=== PATIENT | male | born 1960 | race Caucasian/White ===

== ENCOUNTER 2019-07-30 07:41 | Day surgery (SDC) | payer BC ==
[2019-07-29 09:12] VITALS: BMI 28.7
[2019-07-30] MEDS ORDERED: LIDOCAINE HCL 1%, 10 MG/ML (20ML VIAL) ONE (08:12)
[2019-07-30] MEDS ORDERED: BUPIVACAINE HCL/PF 0.5% (5 MG/ML) 30 ML VIAL IJ ONE ×2 (08:12→09:20)
[2019-07-30] MEDS ORDERED: PROPOFOL 20 ML ONE ×2 (08:43)
[2019-07-30] MEDS ORDERED: MIDAZOLAM HCL 2 MG/2 ML SINGLE DOSE VIAL ONE (08:44)
[2019-07-30] MEDS ORDERED: SUCCINYLCHOLINE CHLORIDE 200 MG/10 ML SYRINGE ONE (08:44)
--- NOTE | 2019-07-30 08:44 | HP ---
Satellite H - Chief Complaint Chief Complaint: right index finger pain/locking - Past Medical History Allergies/Adverse Reactions: Allergies Allergy/AdvReac Type Severity Reaction Status Date / Time No Known Allergies Allergy Verified 07/30/19 08:17 - Current Medications Current Medications: Home Medications Medication Instructions Recorded Losartan Potassium 50 mg PO HS 07/29/19 Hydrocodone/Acetaminophen 1 each PO Q6H #10 tablet MDD 4 07/30/19 [Hydrocodone-Acetamin 5-325 mg] Satellite Physical Exam - Physical Examination Vital Signs: Vital Signs Period Temp Pulse Resp BP Sys/Mares Pulse Ox Last 24 Hr 97.5 F-97.5 F 63-63 20-20 155-155/90-90 98 General Appearance: Well Nourished, Well Developed, Alert & Oriented x3 ENT: Clear Lung: Normal air movement Heart: Regular rate & rhythm Extremities: Other (right index finger- + ttp a1 jayne, + locking, nvi) Neurological: Intact, Alert, Oriented Satellite Impression/Plan - Impression/Plan Impression: right index trigger finger Operative Procedure: right index trigger finger release Date to be Performed: 07/30/19
[2019-07-30] MEDS ORDERED: ceFAZolin SODIUM 1 GM VIAL IVPB ONE (09:10)
[2019-07-30] MEDS ORDERED: LIDOCAINE HCL 1%, 10 MG/ML (50 mL VIAL) IJ ONE (09:20)
--- NOTE | 2019-07-30 09:52 | OP ---
Operative Note - Note: Operative Date: 07/30/19 Pre-Operative Diagnosis: right index finger trigger finger Operation: right index finger trigger finger release, tendon sheath excision Post-Operative Diagnosis: Same as Pre-op Surgeon: Star Galvan Anesthesiologist/HOSE SEAMER: Jake Bragg Anesthesia: Local, MAC Specimens Removed: tendon sheath Estimated Blood Loss (mls): 0 Drains, Volume Out (mls): 0 Blood Volume Replaced (mls): 0 Fluid Volume Replaced (mls): 500 Operative Report Dictated: Yes
[2019-07-30 10:26] VITALS: BP 119/75; PULSE 56; TEMP 97.7
[2019-07-30] MEDS ORDERED: oxyCODONE HCL 5 MG TABLET PO PRN (11:14)
[2019-07-30] MEDS ORDERED: ONDANSETRON 4 MG/2 ML VIAL IVPUSH PRN (11:14)
[2019-07-30] MEDS ORDERED: LACTATED RINGERS SOLUTION 1,000 ML IV SCH (11:15)
--- NOTE | 2019-07-30 12:59 | SPEC ---
DATE OF OPERATION: 07/30/2019 PREOPERATIVE DIAGNOSIS: Right index finger trigger finger. POSTOPERATIVE DIAGNOSIS: Right index finger trigger finger. PROCEDURE: Right index finger trigger finger release and tendon sheath excision. SURGEON: Mukesh Perez MD PARKING ENFORCER: None. ANESTHESIA: MAC, local injection 10 mL 0.5% Marcaine 1% lidocaine mix. SPECIMEN: Tendon sheath. DRAINS: None. COMPLICATIONS: None. FLUID REPLACEMENT: 500 mL Plasma-Lyte. INDICATIONS: This patient is a 58-year-old male with a preoperative diagnosis for recurrent right index finger trigger finger. After understanding the potential risks, complications, alternatives and benefits to surgery versus nonsurgical treatment, the patient elected to undergo this procedure. PROCEDURE: The patient was brought to the operating room, IV was placed, IV sedation was given. One gram of intravenous Ancef given. A tourniquet was applied to the right upper arm and the right upper extremity was prepped and draped in sterile fashion. The entire case was done under 3.8 loupe magnification. A marking pen was utilized to karen out a longitudinal incision in an already existing skin crease at the base of the right index finger. Then 10 mL of 0.5% Marcaine mixed with 1% Lidocaine was injected in and around the incision. The right upper extremity was elevated, exsanguinated with an Esmarch bandage and the tourniquet inflated to 250 mmHg. A No. 15 scalpel blade was utilized to cut down through the skin. Subcutaneous hemostasis was achieved with the bipolar cautery. Additional dissection was done with Littler scissors until I was able to directly visualize the A1 jayne sheath in its entirety. Self-retaining retractors were placed into the wound. A free air elevator was used to free up the tissue on the radial side, the ulnar side distally and proximally under better visualization of A1 jayne sheath. Next, using a fresh No. 15 scalpel blade, I excised the central one-third of the A1 jayne sheath and passed it off the field as specimen, tendon sheath, right index finger. I then completed the release, both distally and proximally, and brought the FDS and FDP tendons out through the wound with a Ragnell retractor. There were no abnormal points of compression. I was able to move the right index finger without the tendons bunching up at all. The area was then copiously irrigated and washed out. I then checked one more time to make sure there were no abnormal points of compression. None were seen and therefore closure was begun. One stitch using 4-0 Vicryl was used in the deep dermal layer. Skin was reapproximated with 4-0 Nylon sutures in a horizontal mattress fashion. The area was then washed and dried, covered with Xeroform gauze, sterile 4x4s, fluffs between the fingers, Webril and Coban. The tourniquet was taken down after a total tourniquet time of 14 minutes. There were no complications during the case. The patient tolerated the procedure well and was brought to the ambulatory recovery room in stable condition. MUKESH PEREZ M.D. [id number]
--- NOTE | 2019-07-30 13:02 | SPEC ---
DATE OF OPERATION: DATE OF DICTATION: 07/30/2019 ADDENDUM Jake Bragg was the MARKET ANALYSIS DIRECTOR. Remedios [id number]
--- NOTE | 2019-08-05 09:25 | PATH ---
Surgical Pathology Report Patient Name: AVANI MEDRANO Med. Rec. #: [id number] /Age/Gender: 1960 (Age: 58) / M Account: [id number] Location: [facility] Taken: 07/30/2019 Received: 07/30/2019 Reported: 08/05/2019 Physicians: Star Galvan M.D. Specimen(s) Received RIGHT INDEX FINGER TENDON SHEATH Clinical History Trigger finger, right index Final Diagnosis RIGHT INDEX FINGER TENDON SHEATH, EXCISION: FIBROCONNECTIVE TISSUE WITH FIBROSIS AND FOCAL DEGENERATIVE CHANGE. Electronically Signed Robert Little M.D. Gross Description Received in formalin, labeled "right index finger tendon sheath" two portions are glistening white fibrotendinous tissue, measuring 0.6 cm and 0.8 cm in greatest dimension. Entirely submitted in one cassette. AE/07/31/2019 ebram/07/31/2019
== END 2019-07-30 11:45 | disposition home or self-care (01) ==
LOC: JASU-SURG 07:41
PROVIDERS: ATTEND Orthopaedic Surgery
PROC: 0LN70ZZ Release Right Hand Tendon, Open Approach (ICD-10-PCS; principal; 2019-07-30 09:00)
DX: M65.321 Trigger finger, right index finger (principal)
CPT/HCPCS: 94760